=== PATIENT | male | born 2000 | race Caucasian/White ===

== ENCOUNTER 2019-10-22 21:23 | Emergency (ER) | payer OTHER ==
[~2019-10-22] VITALS: Ht 180.3 cm; Wt 103.4 kg
[2019-10-22] MEDS ORDERED: ondansetron 4mg rapidly disintigrating tab PO ONE (21:40)
[2019-10-22] MEDS ORDERED: HYDROcodone/acetaminophen 5mg/325mg tablet PO ONE (21:40)
--- NOTE | 2019-10-22 21:45 | NUR ---
XRAY AT BEDSIDE
[2019-10-22] MEDS ORDERED: NAPR-56 PO (22:00)
[2019-10-22 22:13] VITALS: BP 108/60
== END 2019-10-22 22:40 | disposition home or self-care (01) ==
LOC: ER 21:24
DX: S93.492A Sprain of other ligament of left ankle, initial encounter (principal); J45.909 Unspecified asthma, uncomplicated; Z79.899 Other long term (current) drug therapy; W21.05XA Struck by basketball, initial encounter; Y93.67 Activity, basketball; Y92.89 Other specified places as the place of occurrence of the external cause; Y99.8 Other external cause status
CPT/HCPCS: 73610; 99283